=== PATIENT | male | born 1945 | race Caucasian/White ===

== ENCOUNTER 2021-02-17 09:59 | Outpatient (CLI) | payer MEDICARE, OTHER, SELFPAY ==
[2021-02-17 10:18] VITALS: BP 128/79; PULSE 72; RESP 17; TEMP 37; O2SAT 96
[2021-02-17 11:20] VITALS: BP 129/79; PULSE 69; RESP 17; TEMP 36.9; O2SAT 94
[2021-02-17 12:31] VITALS: BP 126/77; PULSE 71; RESP 18; TEMP 36.7; O2SAT 97
[2021-02-17 12:53] VITALS: BP 126/77; PULSE 71; RESP 18; TEMP 36.7
== END 2021-02-17 12:55 | disposition home or self-care (01) ==
LOC: OPS 10:00
PROVIDERS: PCP Family Medicine; Visit Provider Nurse Practitioner Family
DX: U07.1 COVID-19 (principal)
CPT/HCPCS: 96365

== ENCOUNTER → 2023-04-19 11:44 | Outpatient (BNVA) | payer MEDICARE, OTHER, SELFPAY | PROVIDERS: PCP Family Medicine; Visit Provider Family Medicine | DX: D51.9 Vitamin B12 deficiency anemia, unspecified (principal) | CPT/HCPCS: 80053; 82607; 85025 ==

== ENCOUNTER → 2023-06-08 09:43 | Outpatient (BNVA) | payer MEDICARE, OTHER, SELFPAY | PROVIDERS: PCP Family Medicine; Visit Provider Nurse Practitioner Family | DX: R05.3 Chronic cough (principal) | CPT/HCPCS: 71046 ==

== ENCOUNTER → 2024-07-30 16:42 | Outpatient (BNVA) | payer MEDICARE, OTHER, SELFPAY | PROVIDERS: PCP Family Medicine; Visit Provider Family Medicine | DX: K21.9 Gastro-esophageal reflux disease without esophagitis (principal); K56.609 Unspecified intestinal obstruction, unspecified as to partial versus complete obstruction | CPT/HCPCS: 80053; 85025; 86003; 86008 ==

== ENCOUNTER 2024-07-31 10:40 | Outpatient (CLI) | payer MEDICARE, OTHER, SELFPAY ==
--- NOTE | 2024-07-31 11:00 | CTR_ITS ---
PROCEDURE INFORMATION: Exam: CT Abdomen And Pelvis Without And With Contrast Exam date and time: 07/31/2024 12:00 PM Age: 79 years old Clinical indication: Vomiting; Additional info: Recurrent isolated episodes of vomiting TECHNIQUE: Imaging protocol: Computed tomography of the abdomen and pelvis without and with contrast. Radiation optimization: All CT scans at this facility use at least one of these dose optimization techniques: automated exposure control; mA and/or kV adjustment per patient size (includes targeted exams where dose is matched to clinical indication); or iterative reconstruction. Contrast material: OMNIPAQUE 350; Contrast volume: 100 ml; Contrast route: INTRAVENOUS (IV); COMPARISON: CR XR chest 2V* [id number] 06/08/2023 9:41 AM RADIATION DOSE METRICS: Total DLP (mGy-cm): 994.43 FINDINGS: Lungs: Right basilar consolidation. Subsegmental atelectasis in the lingula and mild dependent atelectasis in the left lower lobe. Diaphragm: Small sliding-type hiatal hernia. Liver: 1.3 cm simple appearing cyst in the lateral segment left hepatic lobe. Additional subcentimeter hypodensities are too small to characterize but likely represent cysts. Gallbladder and biliary ducts: The gallbladder is markedly distended with diffuse wall thickening and pericholecystic fat stranding. Pancreas: Normal. No ductal dilation. Spleen: Normal. No splenomegaly. Adrenal glands: Normal. No mass. Kidneys and ureters: 4 mm nonobstructing left renal calculus. 3.1 cm right renal cyst. Additional subcentimeter hypodensities too small to characterize but likely representing cysts. Stomach and bowel: Periampullary duodenal diverticulum. No bowel obstruction. Appendix: No evidence of appendicitis. Intraperitoneal space: Unremarkable. No free air. No significant fluid collection. Vasculature: Mild atherosclerotic aortoiliac calcifications. No abdominal aortic aneurysm. Lymph nodes: Unremarkable. No enlarged lymph nodes. Urinary bladder: Unremarkable as visualized. Reproductive: Prostatomegaly. Bones/joints: Degenerative changes of the visualized spine. Soft tissues: Small fat containing left inguinal hernia. CT/CT abdomen pelvis wo/w [id number] IMPRESSION: 1. Findings compatible with acute cholecystitis. 2. Nonobstructing left nephrolithiasis. 3. Simple appearing hepatic and right renal cysts. COMMENTS: Consistent with the [employer]'s Incidental Findings Committee white paper (J Am Irvin Radiol 2018): Any incidental renal lesion less than 1 cm or classified as too small to characterize, or any incidental cystic renal lesion characterized as simple-appearing, is likely benign. No follow-up imaging is recommended for these lesions per consensus recommendations based on imaging criteria.
[2024-07-31] MEDS: iohexol 350 mg/mL 500 mL Btl (per mL) PO (11:01)
[2024-07-31] MEDS: iohexol 350 mg/mL 500 mL Btl (per mL) IV (12:04)
== END 2024-07-31 10:41 | disposition home or self-care (01) ==
PROVIDERS: PCP Family Medicine; Visit Provider Family Medicine
DX: K56.600 Partial intestinal obstruction, unspecified as to cause (principal); R93.3 Abnormal findings on diagnostic imaging of other parts of digestive tract; N20.0 Calculus of kidney; N28.1 Cyst of kidney, acquired; K76.89 Other specified diseases of liver; R91.8 Other nonspecific abnormal finding of lung field; J98.11 Atelectasis; K44.9 Diaphragmatic hernia without obstruction or gangrene; R93.2 Abnormal findings on diagnostic imaging of liver and biliary tract; R93.421 Abnormal radiologic findings on diagnostic imaging of right kidney; R93.422 Abnormal radiologic findings on diagnostic imaging of left kidney; K57.10 Diverticulosis of small intestine without perforation or abscess without bleeding; I70.8 Atherosclerosis of other arteries; N40.0 Benign prostatic hyperplasia without lower urinary tract symptoms; M47.9 Spondylosis, unspecified; K40.90 Unilateral inguinal hernia, without obstruction or gangrene, not specified as recurrent
CPT/HCPCS: 74178

== ENCOUNTER 2024-07-31 15:19 | Inpatient (IN) | payer MEDICARE, OTHER, SELFPAY ==
[2024-07-31 15:29] VITALS: BMI 25.5
--- NOTE | 2024-07-31 15:47 | PM.HP ---
Providers/Chief Complaint Admitting Physician: Travis Jimenez MD Primary Care Provider: Feliz Odom MD Chief Complaint: Colycystitis History of Present Illness Víctor Maldonado is a 79 year old male who presents [facility] due to a 3-day history of nausea, vomiting, abdominal pain, he reports right upper quadrant pain especially with coughing, does report subjective fevers, no chills, no lightheadedness, dizziness, no history of alcoholism, no history of gallstones, he had a CT scan ordered by his outpatient physician which shows evidence of acute cholecystitis, tells me for the last 3 days he has not eaten or drink anything due to nausea, vomiting, poor oral intake, right upper quadrant abdominal pain, which is improving he tells me, now it only happens when he coughs Review of Systems Card: Denies: chest pain Resp: Denies: dyspnea GI: Reports: abdominal pain, nausea and vomiting; Denies: coffee ground emesis, dysphagia, diarrhea or constipation : Denies: flank pain, difficulty urinating or dysuria Neuro: Denies: headache(s) Medications/Allergies Home Medications ?Medication ?Instructions ?Recorded ?Confirmed ?Last Taken ?Type aspirin 81 mg chewable tablet 81 mg PO DAILY 04/19/23 07/31/24 07/29/24 09:00 History lcawzqf-qnkemybwi-umek tablet 1 tab PO DAILY 04/19/23 07/31/24 07/29/24 09:00 History cholecalciferol (vitamin D3) 25 25 mcg PO DAILY 04/19/23 07/31/24 07/29/24 09:00 History mcg (1,000 unit) capsule albuterol sulfate 90 mcg/actuation 2 puff inhalation QID PRN 06/08/23 07/31/24 07/29/24 09:00 Rx aerosol inhaler shortness of breath or wheezing #6.7 grams budesonide-formoterol HFA 160 2 puff inhalation BID #10.2 grams 02/07/24 07/31/24 07/16/24 09:00 Rx mcg-4.5 mcg/actuation aerosol inhaler (Symbicort) montelukast 10 mg tablet 10 mg PO DAILY #30 tabs 02/07/24 07/31/24 07/29/24 09:00 Rx (Singulair) famotidine 20 mg tablet 20 mg PO BID PRN Acid Reflux 07/31/24 07/31/24 07/29/24 09:00 History ondansetron HCl 8 mg tablet 8 mg PO Q8H PRN Nausea 07/31/24 07/31/24 07/29/24 09:00 History Allergies Allergy/AdvReac Type Severity Reaction Status Date / Time No Known Allergies Allergy Verified 07/31/24 13:33 PFSH Acute PFSH: Medical History Mini stroke History of kidney stones GERD without esophagitis Actinic keratosis Social History Smoking and tobacco/nicotine status: never used tobacco/nicotine Second hand smoke exposure: Yes (his parents smoked around him when he was a child) Alcohol intake: never Substance/Drug Use: never Adopted: No Caregiver/support person: No Lives independently: Yes Household members: spouse Housing: House Current occupation: plummer Vitals/I&O/Wt Weight last 48 hrs Weight 80.739 kg Physical Exam Const: COMMON NORMALS: no acute distress and patient oriented x3 HENMT: COMMON NORMALS: normocephalic HEAD & SCALP: normocephalic Eye: COMMON NORMALS: Equal, round and reactive pupils present Neck/C-Spine: COMMON NORMALS: no JVD Resp: COMMON NORMALS: normal respiratory effort, No retractions, No use of accessory muscles and clear to auscultation bilaterally AUSCULTATION: clear to auscultation bilaterally Cardio: COMMON NORMALS: no JVD, regular rate, regular rhythm, S1 normal heart sound present and S2 normal heart sound present RATE: regular rate RHYTHM: regular rhythm HEART SOUNDS: S1 normal heart sound present and S2 normal heart sound present GI: COMMON NORMALS: Normal to inspection, nondistended, normoactive bowel sounds present and Soft to palpation OTHER: RUQ tenderness to palpation Extremity: COMMON NORMALS: no calf tenderness and no pedal edema Neuro: COMMON NORMALS: patient oriented x3, CN's II-XII intact bilaterally and moves all extremities Psych: COMMON NORMALS: mental status grossly normal A&P Assessment and plan (1) Acute cholecystitis: Plan Acute cholecystitis - Right upper quadrant abdominal pain CT/CT abdomen pelvis wo/w [id number] IMPRESSION: 1. Findings compatible with acute cholecystitis. 2. Nonobstructing left nephrolithiasis. 3. Simple appearing hepatic and right renal cysts. Plan - Right upper quadrant ultrasound - CBC, CMP, lactic acid, lipase, CRP, Pro-Abdoul - Blood cultures - Continue Zosyn - IV fluids - N.p.o. - Full code - Lovenox for DVT prophylaxis PDMP PDMP Reviewed: Not Reviewed Attestations Medical Necessity Statement*: Patient requires hospitalization, inpatient, greater than 2 midnights, for acute cholecystitis Diagnoses Acute cholecystitis K81.0
--- NOTE | 2024-07-31 15:49 | USR_ITS ---
PROCEDURE INFORMATION: Exam: US Abdomen, Limited; Right Upper Quadrant Exam date and time: 07/31/2024 4:58 PM Age: 79 years old Clinical indication: Abdominal pain; Additional info: Ruq pain TECHNIQUE: Imaging protocol: Real time ultrasound of the abdomen with image documentation. Limited exam focused on the right upper quadrant. COMPARISON: CT abdomen pelvis wo/w [id number] 07/31/2024 12:00 PM FINDINGS: Liver: Normal. No masses. Liver measures 16.5 cm in length. Gallbladder: Layering gallbladder sludge within the lumen. Diffuse gallbladder wall thickening measuring up to 5 mm with mild pericholecystic fluid. Sonographic Enrique's sign not given by technologist. Biliary ducts: Normal. No stones. No dilation. Common bile duct measures 0.3 cm in caliber. Pancreas: Visualized pancreas is unremarkable. Right kidney: Normal. No mass. No hydronephrosis. Right kidney measures 10.4 cm in length. 3.9 x 2.5 x 3.3 cm cyst. Aorta: Distal aorta measures 1.4 cm. Inferior vena cava: Upper IVC measures 1.6 cm. Portal venous: Hepatopetal flow in the main portal vein. US/US gall bladder [id number] IMPRESSION: Gallbladder sludge with gallbladder wall thickening and mild pericholecystic fluid. Findings remain concerning for acute cholecystitis. HIDA scan could be considered for further evaluation if clinically warranted.
[2024-07-31 16:00] VITALS: BP 120/67; PULSE 94; RESP 16; TEMP 39.3; O2SAT 92
--- NOTE | 2024-07-31 16:33 | PM.CONSULT ---
Providers/Reason For Consult Consulting Physician/Specialty*: General surgeon Reason for Consult*: Acute cholecystitis Attending Physician: Travis Jimenez MD Primary Care Provider: Feliz Odom MD History of Present Illness History of Present Illness Víctor Maldonado is a 79 year old male Who is admitted to the hospital with sepsis in the setting of acute cholecystitis. Patient has been having abdominal pain intermittently for more than a week. Since Tuesday the abdominal symptoms have become constant, he has become febrile, has had several episodes of nausea and dry heaving, complaining of right upper quadrant pain. CT done in the outpatient setting today showed evidence of acute cholecystitis patient was referred to the hospital for this finding. Upon arrival to the hospital he has a temperature 102.7 Review of Systems General: Reports: 10 or more systems reviewed and unremarkable except in HPI and below Medications/Allergies Home Medications ?Medication ?Instructions ?Recorded ?Confirmed ?Last Taken ?Type aspirin 81 mg chewable tablet 81 mg PO DAILY 04/19/23 07/31/24 07/29/24 09:00 History nhcktno-cwetkvoij-ypwp tablet 1 tab PO DAILY 04/19/23 07/31/24 07/29/24 09:00 History cholecalciferol (vitamin D3) 25 25 mcg PO DAILY 04/19/23 07/31/24 07/29/24 09:00 History mcg (1,000 unit) capsule albuterol sulfate 90 mcg/actuation 2 puff inhalation QID PRN 06/08/23 07/31/24 07/29/24 09:00 Rx aerosol inhaler shortness of breath or wheezing #6.7 grams budesonide-formoterol HFA 160 2 puff inhalation BID #10.2 grams 02/07/24 07/31/24 07/16/24 09:00 Rx mcg-4.5 mcg/actuation aerosol inhaler (Symbicort) montelukast 10 mg tablet 10 mg PO DAILY #30 tabs 02/07/24 07/31/24 07/29/24 09:00 Rx (Singulair) famotidine 20 mg tablet 20 mg PO BID PRN Acid Reflux 07/31/24 07/31/24 07/29/24 09:00 History ondansetron HCl 8 mg tablet 8 mg PO Q8H PRN Nausea 07/31/24 07/31/24 07/29/24 09:00 History Allergies Allergy/AdvReac Type Severity Reaction Status Date / Time No Known Allergies Allergy Verified 07/31/24 13:33 PFSH Acute PFSH: Medical History Mini stroke History of kidney stones GERD without esophagitis Actinic keratosis Social History Smoking and tobacco/nicotine status: never used tobacco/nicotine Second hand smoke exposure: Yes (his parents smoked around him when he was a child) Alcohol intake: never Substance/Drug Use: never Adopted: No Caregiver/support person: No Lives independently: Yes Household members: spouse Housing: House Current occupation: plummer Vitals/I&O/Wt Last Vital Signs Temp 102.7 F H 07/31/24 16:00 Pulse 94 07/31/24 16:00 Resp 16 07/31/24 16:00 BP 120/67 07/31/24 16:00 Pulse Ox 92 07/31/24 16:00 O2 Del Method Room Air 07/31/24 16:00 Weight last 48 hrs Weight 178 lb Physical Exam GI: OTHER: Abdominal examination is surprisingly benign, the abdomen is soft, very minimal tenderness in the right upper quadrant. A&P Assessment and plan (1) Acute cholecystitis: (2) GERD without esophagitis: Plan After complete history, physical examination and review of all available clinical data the following is my assessment. This is a 79-year-old male who presents to the hospital with moderate acute cholecystitis and concerns for sepsis. Unfortunately patient has been having symptoms for more than a week at this point, CT of the abdomen and pelvis show evidence of severe inflammation in the right upper quadrant with significant pericholecystic changes including fat stranding. With this findings main objective of therapy at this point will be resolution of sepsis and control of symptoms we will start him on IV fluids pain control and IV antibiotics. Depending on how he does in the next 12 to 24 hours we may decide to proceed to the OR for cholecystectomy versus nonoperative management during this admission and delay cholecystectomy taking consideration that patient duration of symptoms exceeds 1 week. Clinically he appears stable although he is febrile and tachycardic. Patient shows understanding of the plan, we will update surgical management early in the morning tomorrow after repeat labs after examination of the abdomen. I did explain to the patient in the case of deciding to proceed with surgical intervention during this hospital admission there is an increased risk for complications including injury to the adjacent structures which included common bile duct duodenum colon or Renay hepatis, increased risk of needing a subtotal cholecystectomy, increased risk of retained stone and postsurgical complications. Patient shows understanding he agrees with initial nonoperative management followed by possible surgery as needed PDMP PDMP Reviewed: Not Reviewed Coding Level of Care Code Acute Code for Chg Fwd Diagnoses Acute cholecystitis K81.0 GERD without esophagitis K21.9
[2024-07-31] MEDS: sodium chloride 0.9% 1,000 ML 125 ML IV (16:34)
[2024-07-31] MEDS: lactated ringers 1,000 ML 999 ML IV (16:35)
[2024-07-31] MEDS: piperacillin-tazobactam 3.375 GM in sodium chloride 0.9% (plus) 50 ML IV ×2 (16:35→23:37)
[2024-07-31] MEDS: acetaminophen 325 mg Tablet 650 MG PO (16:36)
[2024-07-31] MEDS: pantoprazole 40 mg SDV IVP (16:36)
[2024-07-31 16:44] LABS: Basophils % 0.1 %; Hematocrit 43.9 % (37-53); Lymphocytes # 0.6 10^3/uL (0.8-4.8); Lymphocytes % 3.8 %; Mean Corpuscular HGB Conc 33.5 g/dL (30-55); Mean Corpuscular Hemoglobin 30.1 pg (27-33); Mean Corpuscular Volume 89.8 fl (82-101); Mean Platelet Volume 10.7 fL (7.4-10.4); Monocytes # 1.2 10^3/uL (0.2-0.9); Monocytes % 7.8 %; Neutrophils # 13.76 10^3/uL (1.8-7.7); Neutrophils % 87.8 %; Nucleated Red Blood Cells % 0 %; Platelet Count 183 10^3/cmm (157-399); Red Blood Count 4.89 10^6/uL (3.85-5.65); Red Cell Distribution Width 12.9 % (12.1-15.1); White Blood Count 15.68 10^3/uL (3.29-11.43)
[2024-07-31 16:59] LABS: INR 1.34 (0.8-1.2)
[2024-07-31 17:00] LABS: Partial Thromboplastin Time 28.4 SECONDS (23.9-36.7)
[2024-07-31 17:02] LABS: Lactic Sepsis W/Reflex 1.3 mmol/L (0.5-2.2)
[2024-07-31 17:25] LABS: Thyroid Stimulating Hormone 0.87 uIU/mL (0.27-4.20)
[2024-07-31 17:41] LABS: Alanine Aminotransferase 20 U/L (0-41); Albumin Level 3.8 g/dL (3.5-5.2); Alkaline Phosphatase 72 U/L (40-130); Aspartate Amino Transferase 17 U/L (0-40); Blood Urea Nitrogen 28 mg/dL (8-23); C Reactive Protein 203.6 mg/L (0.0-4.9); Calcium 9.3 mg/dL (8.5-10.5); Carbon Dioxide 22 mmol/L (22-29); Chloride 97 mmol/L (98-107); Chol HDL Ratio 2.74 mg/dL (1.0-5.00); Cholesterol 126 mg/dL (0-200); Creatinine Clr Calc Pharmacy 66.5837; Globulin 3.3 g/dL (1.3-4.6); Glucose 107 mg/dL (65-115); HDL Cholesterol 46 mg/dL (60-100); LDL Cholesterol Calculated 69 mg/dL (50-129); Lipase 14 U/L (13-60); Magnesium 1.9 mg/dL (1.7-2.3); Osmolality Calculated 282 mOsm/kg (285-295); Phosphorus 2.9 mg/dL (2.5-4.5); Sodium 133 mmol/L (136-145); Total Bilirubin 2.1 mg/dL (0.15-1.2); Total Protein 7.1 g/dL (6.6-8.7); Triglycerides 55 mg/dL (0-150)
[2024-07-31] MEDS: ketorolac 30 mg/mL INJ 15 MG IVP ×2 (17:47→22:48)
[2024-07-31 17:55] LABS: Bilirubin Urine 1+ (Negative); Blood Urine 1+ (Negative); Glucose Urine UA Negative (Normal); Ketones Urine Trace (Negative); Leukocyte Esterase Urine Negative (Negative); Nitrate Urine Negative (Negative); Protein Urine 2+ (Negative); Urine Appearance Clear (CLEAR); pH Urine 5.5 (5-7)
[2024-07-31 18:00] LABS: Add Urine Microscopic? YES; Bacteria Urine None Seen /hpf; Hyaline Casts Urine 0-4 /lpf; Squamous Epithelial Cell Urine 0-5 /hpf (0-5); WBC Urine 0-5 /hpf (0-5)
[2024-07-31 18:10] VITALS: TEMP 37.6
[2024-07-31 18:13] LABS: Procalcitonin 1.28 ng/mL (0-0.5)
[2024-07-31 18:41] LABS: Specific Gravity, Urine 1.096 (1.005-1.030); Urine Color Orange (Yellow)
[2024-07-31 20:00] VITALS: BP 107/65; PULSE 80; RESP 18; TEMP 37.1; O2SAT 93
[2024-07-31] MEDS: enoxaparin 40 mg/0.4 mL Syringe SUBCUT (20:51)
[2024-07-31 20:59] LABS: Estmated Average Glucose 111; Hemoglobin A1C 5.5 % (4.0-6.0)
[2024-07-31 22:00] VITALS: PULSE 72
[2024-07-31 23:41] VITALS: BP 122/73; PULSE 84; RESP 17; TEMP 36.7; O2SAT 92
[2024-08-01] VITALS (11 sets, daily range): BP systolic 115–134; BP diastolic 60–75; PULSE 85–103; RESP 16–19; TEMP 37–38.4; O2SAT 90–92
[2024-08-01] MEDS: sodium chloride 0.9% 1,000 ML 125 ML IV ×3 (01:19→16:21)
[2024-08-01] MEDS: ketorolac 30 mg/mL INJ 15 MG IVP ×2 (05:04→09:31)
[2024-08-01 06:02] LABS: Basophils % 0.2 %; Eosinophils % 0.2 %; Hematocrit 38.8 % (37-53); Lymphocytes # 0.5 10^3/uL (0.8-4.8); Lymphocytes % 3.6 %; Mean Corpuscular HGB Conc 32.7 g/dL (30-55); Mean Corpuscular Hemoglobin 29.7 pg (27-33); Mean Corpuscular Volume 90.9 fl (82-101); Mean Platelet Volume 10.9 fL (7.4-10.4); Monocytes # 1.2 10^3/uL (0.2-0.9); Monocytes % 9.7 %; Neutrophils # 10.74 10^3/uL (1.8-7.7); Neutrophils % 85.7 %; Nucleated Red Blood Cells % 0 %; Platelet Count 145 10^3/cmm (157-399); Red Blood Count 4.27 10^6/uL (3.85-5.65); Red Cell Distribution Width 13.1 % (12.1-15.1); White Blood Count 12.52 10^3/uL (3.29-11.43)
[2024-08-01 06:28] LABS: Alanine Aminotransferase 14 U/L (0-41); Albumin Level 3.1 g/dL (3.5-5.2); Alkaline Phosphatase 67 U/L (40-130); Anion Gap 12.8 (5-19); Aspartate Amino Transferase 13 U/L (0-40); Blood Urea Nitrogen 31 mg/dL (8-23); Calcium 8.5 mg/dL (8.5-10.5); Carbon Dioxide 23 mmol/L (22-29); Chloride 103 mmol/L (98-107); Creatinine Clr Calc Pharmacy 77.4216; Globulin 2.9 g/dL (1.3-4.6); Glucose 90 mg/dL (65-115); Osmolality Calculated 286 mOsm/kg (285-295); Potassium 3.8 mmol/L (3.5-5.1); Sodium 135 mmol/L (136-145); Total Bilirubin 1.6 mg/dL (0.15-1.2)
--- NOTE | 2024-08-01 07:00 | P.PN_ITS ---
Subjective 2 Subjective: 79-year-old male admitted with acute cho lecystitis after about a week of right upper quadrant abdominal pain that has been getting worse over the last 48 hours associated with fever and p.o. intolerance. Patient is doing very well this morning, pain has almost completely resolved, subjectively feeling almost normal. Vitals/I&O/Wt Last Vital Signs Temp 99.7 F H 08/01/24 04:00 Pulse 85 08/01/24 06:00 Resp 18 08/01/24 04:00 BP 122/64 08/01/24 04:00 Pulse Ox 90 08/01/24 04:00 O2 Del Method Room Air 08/01/24 04:00 07/31/24 08/01/24 08/01/24 22:59 06:59 14:59 Intake Total 1050 / 1050 1650 / 2700 Balance 1050 / 1050 1650 / 2700 Weight last 48 hrs Weight 197 lb 8 oz Weight 178 lb Physical Exam 2 GI: OTHER: Abdomen soft nontender nondistended. Data 08/01/24 04:18 08/01/24 04:18 Micro: Microbiology 07/31/24 16:10 Blood Culture - Preliminary Blood SPECIMEN COLLECTED 07/31/24 16:10 Blood Culture - Preliminary Blood SPECIMEN COLLECTED A&P Assessment and plan (1) Acute cholecystitis: Plan Patient is showing an excellent progression with nonoperative management of acute cholecystitis. His white count has trended down has been afebrile over the last 12 hours, tachycardia has resolved. Abdominal examination is completely benign. At this point we will plan to advance to full liquid diet and if tolerating by tomorrow we will give her a GI soft low fiber diet before discharge. The plan is to do a nonoperative management of these episodes of acute cholecystitis as patient has been having symptoms for more than 5 days now making initial surgery high risk for morbidity. After a cooldown period about 6 weeks I will bring the patient back for an elective laparoscopic cholecystectomy. I did explain to the patient that this approach carries a risk of failure and if he does have recurrent symptoms over this waiting. He should immediately return to the emergency department so we can proceed with emergent cholecystectomy. I have also Explained that if we are forced to do that it increases interoperative risk significantly. Patient shows understanding he is agreeable with the plan. He is in good spirits. All other management per medical team. PDMP PDMP Reviewed: Not Reviewed Attestations 2 Medical Necessity Statement*: Per medical team Coding Level of Care Code Acute Code for g Fwd Diagnoses Acute cholecystitis K81.0
[2024-08-01] MEDS: piperacillin-tazobactam 3.375 GM in sodium chloride 0.9% (plus) 50 ML IV ×2 (08:32→15:07)
--- NOTE | 2024-08-01 10:10 | PC.CHAP ---
Pastoral Care Encounter/Spiritual Assessment Type of Contact [] Declined lunch counter manager visit [] Patient/Family/Request visit [] Outpatient visit [] Follow-up visit [] Physician referral [] Code/Alert [x] Routine visit [] Staff referral [] Actively dying [] Patient sleeping [x] Family support [] [] Out of room [] Palliative care [] [] Receiving care in room [] Pre-surgical visit [] Trauma [] Long length of stay [] ICU visit [] Other: Relational/Emotional Strength [x] Patient feels connected with others/family/visitors/staff [] Distress [] Loneliness/isolation [] Abandonment Spirituality of Patient [x] Person of Nuvia [] Attends Confucianism of their Nuvia [x] Believes in Prayer [] Reads Bible or Oriental Orthodox materials [] There are Spiritual issues to be addressed Glass Polisher Interventions [x] Prayer [x] Active listening [x] Non-anxious presence [x] Spiritual/emotional support [] Crisis/trauma care [] Spiritual counseling [] Bereavement support [] Provided bereavement packet [] Provided Bible/devotional materials [] Provided toy/stuffed animal, coloring book to patient or family member [] Provided Communion [] Anointing/[place] [] Salvation [x] Completed spiritual assessment [] Other: Impact on Illness or Injury [] Angry [] Fearful [] Anxious [] Often cries [] Exhaustion [] Unable to work [] Unable to attend jew [] Unable to walk/stand [] Unable to read [] Unable to drive [] Unable to eat/drink [] Unable to sleep [] Unable to be with family [] Patient intubated [] Other: Summary Time spent with patient 5 min
--- NOTE | 2024-08-01 14:44 | PM.MISC ---
Miscellaneous Note Purpose of Documentation: Update on patient care Note: Patient has seen good progression during the day today. He has been able to tolerate diet with no nausea. No abdominal pain whatsoever. Vital signs have been stable last temperature 99.5. I had another discussion with the patient regarding treatment plan. We will continue current course of antibiotic management we will recheck labs in the morning if in the morning laboratory workup shows improvement and he is tolerating diet he will be allowed to transition to the outpatient setting with the hopes of bringing him back for an interval cholecystectomy in 6 to 8 weeks after this episode. In the case of clinical worsening we will have to discuss the possibility of surgery although I will definitely will prefer to avoid surgical intervention during this admission due to the timeline since initiation of symptoms. Patient shows understanding and agrees.
[2024-08-01] MEDS: pantoprazole 40 mg SDV IVP (15:07)
[2024-08-01] MEDS: morphine 4 mg/mL SDV 1 mL 2 MG IVP (15:08)
--- NOTE | 2024-08-01 15:19 | P.PN_ITS ---
Subjective 2 Subjective: Patient was seen this morning, he is currently alert oriented x 3, following all commands, he did have 1-2.7 fever yesterday afternoon, did have low-grade temperatures throughout the night, no nausea, no vomiting, having passing gas, does have right upper quadrant pain upon coughing, but no significant upper quadrant tenderness - WBC 12.52, total bili 1.6, CRP 212.2, procalcitonin 1.28 - Discussed with patient's the plan cont inue IV antibiotics, IV fluids, general surgery has seen patient, currently on clear liquids, the plan is for patient to be hopefully discharge tomorrow as long as he continues to clinically improve, and outpatient plans on cholecystectomy it up to 6 weeks - Patient and want surgery to be do ne sooner, they are agreeable to IV antibiotics, IV fluids, 48 hours to let the gallbladder cooldown with antibiotics, however they were hoping that the surgery could be done sooner, - I had a detailed discussion with the p maribeth's family about risks and benefits of surgery, risks and benefits of watchful waiting, after discussing the risk and benefits of all options, patient is not and voiced understanding, all questions answered, they would like me to get a second opinion from a surgeon in a tertiary center such as [place] they have no preference on which hospital, agreeable to [facility] in [place] - I spoke to transfer center, [facility] - Spoke to Dr. Triplett at [facility] [place] - Dr. Triplett advised me that it is reas onable for watchful waiting versus surgical intervention, but he is happy to have patient transferred up to [facility] to see patient, and give his opinion, however coming up to [place] does not guarantee that he will take out the gallbladder - I spoke to patient's family in detail, about my discussion with Dr. Triplett, discussed watchful waiting versus surgical intervention, and going up to [place] does not guarantee he will have a cholecystectomy - I gave family some time to make up the ir minds, and come to decision - I also in the family meeting with aliyah costello, his , and his daughter over the phone had a detailed discussion with him about the options available watchful waiting and surgical intervention later on versus surgical intervention more urgently - Patient and family voiced leonin g, all questions answered, shared decision making, - I had another family meeting, patient' s and family would like patient to be transferred to [facility] under the care of Dr. Triplett - After discussing the risks and benefit s of transfer, they voiced understanding, all questions were agreed to proceed - Discussed with him and family that his transfer might not be covered, patient and family voiced understanding, all questions answered, agreed to proceed - Vitals/I&O/Wt Last Vital Signs Temp 99.5 F 08/01/24 12:04 Pulse 93 08/01/24 15:03 Resp 18 08/01/24 15:03 BP 115/60 08/01/24 12:04 Pulse Ox 92 08/01/24 15:03 O2 Del Method Room Air 08/01/24 15:03 08/01/24 08/01/24 08/01/24 06:59 14:59 22:59 Intake Total 1650 / 2700 4.167 / 2033.167 Balance 1650 / 2700 4.167 / 2033.167 Weight last 48 hrs Weight 89.584 kg Weight 80.739 kg Physical Exam 2 Const: COMMON NORMALS: no acute distress and patient oriented x3 Resp: COMMON NORMALS: normal respiratory effort, No retractions, No use of accessory muscles and clear to auscultation bilaterally AUSCULTATION: clear to auscultation bilaterally Cardio: COMMON NORMALS: regular rate, regular rhythm, S1 normal heart sound present and S2 normal heart sound present RATE: regular rate RHYTHM: r egular rhythm HEART SOUNDS: S1 normal heart sound present and S2 normal heart sound present GI: COMMON NORMALS: Normal to inspection, nondistended, normoactive bowel sounds present and non-tender Extremity: COMMON NORMALS: no pedal edema Neuro: COMMON NORMALS: patient oriented x3 Psych: COMMON NORMALS: mental status grossly normal Data 08/01/24 04:18 08/01/24 04:18 Micro: Microbiology 07/31/24 16:10 Blood Culture - Preliminary Blood SPECIMEN COLLECTED 07/31/24 16:10 Blood Culture - Preliminary Blood SPECIMEN COLLECTED A&P Assessment and plan (1) Acute cholecystitis: Plan Acute cholecystitis - Right upper quadrant abdominal pain CT/CT abdomen pelvis wo/w [id number] IMPRESSION: 1. Findings compatible with acute cholecystitis. 2. Nonobstructing left nephrolithiasis. 3. Simple appearing hepatic and right renal cysts. us gallbladder US/US gall bladder [id number] IMPRESSION: Gallbladder sludge with gallbladder wall thickening and mild pericholecystic fluid. Findings remain concerning for acute cholecystitis. HIDA scan could be considered for further evaluation if clinically warranted. - CRP 212, bilirubin 1.6, Pro-Abdoul 1.28 Plan - Continue clear liquid diet - Serial abdominal exams - Blood cultures - Continue Zosyn - IV fluids - Clear liquids, will make n.p.o. midnight - Full code - Lovenox for DVT prophylaxis PDMP PDMP Reviewed: Not Reviewed Attestations 2 Medical Necessity Statement*: Patient requires hospitalization for acute cholecystitis, requiring transfer to tertiary level center Diagnoses Acute cholecystitis K81.0
--- NOTE | 2024-08-01 15:38 | P.TS_ITS ---
Transfer Summary Providers Date of Admission: 07/31/24 15:25 Date of Discharge/Transfer: 08/01/24 Attending Provider at Admission: Travis Jimenez MD Attending Provider at Transfer: Travis Jimenez MD Primary Care Provider: Feliz Odom MD Transfer Plans: Anticipated date of transfer: 08/01/24 . Diagnoses at Discharge Discharge Diagnosis (1) Acute cholecystitis: Status: Acute Reason for Visit Reason for Visit Colycystitis Hospital Course Hospital Course Víctor Maldonado is a 79 year old male who presents [facility] due to a 3-day history of nausea, vomiting, abdominal pain, he reports right upper quadrant pain especially with coughing, does report subjective fevers, no chills, no lightheadedness, dizziness, no history of alcoholism, no history of gallstones, he had a CT scan ordered by his outpatient physician which shows evidence of acute cholecystitis, tells me for the last 3 days he has not eaten or drink anything due to nausea, vomiting, poor oral intake, right upper quadrant abdominal pain, which is improving he tells me, now it only happens when he coughs Patient was admitted to [facility] for acute cholecystitis Acute cholecystitis - Right upper quadrant abdominal pain CT/CT abdomen pelvis wo/w [id number] IMPRESSION: 1. Findings compatible with acute cholecystitis. 2. Nonobstructing left nephrolithiasis. 3. Simple appearing hepatic and right renal cysts. us gallbladder US/US gall bladder [id number] IMPRESSION: Gallbladder sludge with gallbladder wall thickening and mild pericholecystic fluid. Findings remain concerning for acute cholecystitis. HIDA scan could be considered for further evaluation if clinically warranted. - CRP 212, bilirubin 1.6, Pro-Abdoul 1.28, febrile yesterday afternoon up to 102.7 - Patient overall clinically was improving, transition to clear liquid diet Patient was seen this morning, he is currently alert oriented x 3, following all commands, he did have 102.7 fever yesterday afternoon, did have low-grade temperatures throughout the night, no nausea, no vomiting, passing gas, does have right upper quadrant pain upon coughing, but no significant upper quadrant tenderness - WBC 12.52, total bili 1.6, CRP 212.2, procalcitonin 1.28 - Discussed with patient's the plan continue IV antibiotics, IV fluids, general surgery has seen patient, currently on clear liquids, the plan is for patient to hopefully discharge tomorrow as long as he continues to clinically improve, and outpatient plans on cholecystectomy up to 6 weeks - Patient and want surgery to be done sooner, they are agreeable to IV antibiotics, IV fluids, 48 hours to let the gallbladder cooldown with antibiotics, however they were hoping that the surgery could be done sooner, - I had a detailed discussion with the patient's family about risks and benefits of surgery, risks and benefits of watchful waiting, after discussing the risk and benefits of all options, patient and voiced understanding, all questions answered, they would like for me to get a second opinion from a surgeon in a tertiary center such as [place] they have no preference on which hospital, agreeable to [facility] in [place] - I spoke to transfer center, [facility] - Spoke to Dr. Triplett at [facility] - Dr. Triplett advised me that it is reasonable for watchful waiting versus surgical intervention, but he is happy to have patient transferred up to [facility] to see patient, and give his opinion, however coming up to [place] does not guarantee that he will take out the gallbladder during patient's admission - I spoke to patient's family in detail, about my discussion with Dr. Triplett, discussed watchful waiting versus surgical intervention, and going up to [place] does not guarantee he will have a cholecystectomy - I gave family some time to come to inform decision - I also in the family meeting with patient, his , and his daughter over the phone had a detailed discussion with him about the options available watchful waiting and surgical intervention later on versus surgical intervention more urgently - Patient and family voiced understanding, all questions answered, shared decision making, - I had another family meeting, patient's and family would like patient to be transferred to [facility] under the care of Dr. Triplett -Again they understand that going up to [facility] does not guarantee that he will have his cholecystectomy, but they are in preference for transfer, they are hoping to have the gallbladder out sooner than 6 weeks, - After discussing the risks and benefits of transfer, they voiced understanding, all questions were agreed to proceed - Discussed with him and family that his transfer might not be covered by insurance, patient and family voiced understanding, all questions answered, agreed to proceed Physical Exam Const: COMMON NORMALS: no acute distress and patient oriented x3 Resp: COMMON NORMALS: normal respiratory effort, No retractions, No use of accessory muscles and clear to auscultation bilaterally AUSCULTATION: clear to auscultation bilaterally Cardio: COMMON NORMALS: regular rate, regular rhythm, S1 normal heart sound present and S2 normal heart sound present RATE: regular rate RHYTHM: regular rhythm HEART SOUNDS: S1 normal heart sound present and S2 normal heart sound present GI: COMMON NORMALS: Normal to inspection, nondistended, normoactive bowel sounds present and non-tender Extremity: COMMON NORMALS: no pedal edema Neuro: COMMON NORMALS: patient oriented x3 Psych: COMMON NORMALS: mental status grossly normal TS Data Studies Completed and Pending Pending at discharge Category Date Time Status BMP [Basic Metabolic Panel] AM LABS Lab 08/02/24 04:00 Ordered BMP [Basic Metabolic Panel] AM LABS Lab 08/03/24 04:00 Ordered Blood Culture Stat Lab 07/31/24 16:10 Results CRP [C Reactive Protein] AM LABS Lab 08/02/24 04:00 Ordered CRP [C Reactive Protein] AM LABS Lab 08/03/24 04:00 Ordered Complete Blood Count w/Auto AM LABS Lab 08/02/24 04:00 Ordered Complete Blood Count w/Auto AM LABS Lab 08/03/24 04:00 Ordered LFT [Liver Panel] AM LABS Lab 08/02/24 04:00 Ordered LFT [Liver Panel] AM LABS Lab 08/03/24 04:00 Ordered Completed Studies During Hospitalization Category Date Time Status US gall bladder 66137 Stat Ultrasound 07/31/24 15:49 Completed Laboratory Last Values WBC 12.52 10^3/uL (3.29-11.43) H 08/01/24 04:18 RBC 4.27 10^6/uL (3.85-5.65) 08/01/24 04:18 Hgb 12.70 g/dL (11.27-16.99) 08/01/24 04:18 Hct 38.8 % (37-53) 08/01/24 04:18 MCV 90.9 fl (82-101) 08/01/24 04:18 MCH 29.7 pg (27-33) 08/01/24 04:18 MCHC 32.7 g/dL (30-55) 08/01/24 04:18 RDW 13.1 % (12.1-15.1) 08/01/24 04:18 Plt Count 145 10^3/cmm (157-399) L 08/01/24 04:18 MPV 10.9 fL (7.4-10.4) H 08/01/24 04:18 Neut % (Auto) 85.7 % 08/01/24 04:18 Lymph % (Auto) 3.6 % 08/01/24 04:18 [place] % (Auto) 9.7 % 08/01/24 04:18 Eos % (Auto) 0.2 % 08/01/24 04:18 Baso % (Auto) 0.2 % 08/01/24 04:18 Neut # (Auto) 10.74 10^3/uL (1.8-7.7) H 08/01/24 04:18 Lymph # (Auto) 0.5 10^3/uL (0.8-4.8) L 08/01/24 04:18 [place] # (Auto) 1.2 10^3/uL (0.2-0.9) H 08/01/24 04:18 Eos # (Auto) 0.0 10^3/uL (0.0-0.8) 08/01/24 04:18 Baso # (Auto) 0.0 10^3/uL (0.0-0.1) 08/01/24 04:18 Nucleated RBC % (auto) 0 % 08/01/24 04:18 Nucleated RBCs # 0.0 /100WBC 08/01/24 04:18 PT 17.50 SECONDS (12.1-14.9) H 07/31/24 16:10 INR 1.34 (0.8-1.2) H 07/31/24 16:10 APTT 28.4 SECONDS (23.9-36.7) 07/31/24 16:10 Sodium 135 mmol/L (136-145) L 08/01/24 04:18 Potassium 3.8 mmol/L (3.5-5.1) 08/01/24 04:18 Chloride 103 mmol/L (98-107) 08/01/24 04:18 Carbon Dioxide 23 mmol/L (22-29) 08/01/24 04:18 Anion Gap 12.8 (5-19) 08/01/24 04:18 BUN 31 mg/dL (8-23) H 08/01/24 04:18 Creatinine 0.9 mg/dL (0.7-1.2) 08/01/24 04:18 GFR Calculation Not Reportable 08/01/24 04:18 Glucose 90 mg/dL (65-115) 08/01/24 04:18 Estimat Average Glucose 111 07/31/24 16:10 Hemoglobin A1c 5.5 % (4.0-6.0) 07/31/24 16:10 Calculated Osmolality 286 mOsm/kg (285-295) 08/01/24 04:18 Lactic Acid 1.3 mmol/L (0.5-2.2) 07/31/24 16:10 Calcium 8.5 mg/dL (8.5-10.5) 08/01/24 04:18 Phosphorus 2.9 mg/dL (2.5-4.5) 07/31/24 16:10 Magnesium 1.9 mg/dL (1.7-2.3) 07/31/24 16:10 Total Bilirubin 1.6 mg/dL (0.15-1.2) H 08/01/24 04:18 Direct Bilirubin 0.60 mg/dL (0.00-0.30) H 08/01/24 04:18 Indirect Bilirubin 1.50 07/31/24 16:10 AST 13 U/L (0-40) 08/01/24 04:18 ALT 14 U/L (0-41) 08/01/24 04:18 Alkaline Phosphatase 67 U/L (40-130) 08/01/24 04:18 C-Reactive Protein 212.0 mg/L (0.0-4.9) H 08/01/24 04:18 Total Protein 6.0 g/dL (6.6-8.7) L 08/01/24 04:18 Albumin 3.1 g/dL (3.5-5.2) L 08/01/24 04:18 Globulin 2.9 g/dL (1.3-4.6) 08/01/24 04:18 Triglycerides 55 mg/dL (0-150) 07/31/24 16:10 Cholesterol 126 mg/dL (0-200) 07/31/24 16:10 LDL Cholesterol, Calc 69 mg/dL (50-129) 07/31/24 16:10 HDL Cholesterol 46 mg/dL (60-100) L 07/31/24 16:10 LDL/HDL Ratio 1.50 RATIO (0.00-3.22) 07/31/24 16:10 Cholesterol/HDL Ratio 2.74 mg/dL (1.0-5.00) 07/31/24 16:10 Lipase 14 U/L (13-60) 07/31/24 16:10 Procalcitonin 1.28 ng/mL (0-0.5) H 07/31/24 16:10 TSH 0.87 uIU/mL (0.27-4.20) 07/31/24 16:10 Urine Color [employer] (Yellow) A 07/31/24 17:12 Urine Appearance Clear (CLEAR) 07/31/24 17:12 Urine pH 5.5 (5-7) 07/31/24 17:12 Ur Specific [place] 1.096 (1.005-1.030) H 07/31/24 17:12 Urine Protein 2+ (Negative) A 07/31/24 17:12 Urine Glucose (UA) Negative (Normal) 07/31/24 17:12 Urine Ketones Trace (Negative) 07/31/24 17:12 Urine Blood 1+ (Negative) A 07/31/24 17:12 Urine Nitrate Negative (Negative) 07/31/24 17:12 Urine Bilirubin 1+ (Negative) H 07/31/24 17:12 Urine Urobilinogen 1.0 mg/dL (Negative) 07/31/24 17:12 Ur Leukocyte Esterase Negative (Negative) 07/31/24 17:12 Urine RBC 6-10 /hpf (0-2) 07/31/24 17:12 Urine WBC 0-5 /hpf (0-5) 07/31/24 17:12 Ur Squamous Epith Cells 0-5 /hpf (0-5) 07/31/24 17:12 Amorphous Sediment Not Reportable 07/31/24 17:12 Urine Bacteria None seen /hpf (NONE) 07/31/24 17:12 Hyaline Casts 0-4 /lpf H 07/31/24 17:12 Radiology Impressions Gallbladder Ultrasound 07/31/24 15:49 IMPRESSION: Gallbladder sludge with gallbladder wall thickening and mild pericholecystic fluid. Findings remain concerning for acute cholecystitis. HIDA scan could be considered for further evaluation if clinically warranted. Recent Clincial Data Last Vital Signs Temp 99.5 F 08/01/24 12:04 Pulse 93 08/01/24 15:03 Resp 16 08/01/24 15:08 BP 115/60 08/01/24 12:04 Pulse Ox 92 08/01/24 15:03 O2 Del Method Room Air 08/01/24 15:03 Vital Signs Temp Pulse Resp BP Pulse Ox O2 Del Method 08/01/24 15:08 16 08/01/24 15:03 93 18 92 Room Air 08/01/24 12:04 99.5 F 93 18 115/60 91 Room Air 08/01/24 07:55 98.7 F 95 17 122/67 90 Room Air 08/01/24 06:00 85 08/01/24 04:00 99.7 F H 89 18 122/64 90 Room Air Intake & Output/Weight 07/30/24 07/31/24 08/01/24 08/02/24 06:59 06:59 06:59 06:59 Intake Total 2700 / 2700 2034.167 / 2034.167 Balance 2700 / 2700 2034.167 / 2033.167 Weight 89.584 kg Vitals Last Vital Signs Temp 99.5 F 08/01/24 12:04 Pulse 93 08/01/24 15:03 Resp 16 08/01/24 15:08 BP 115/60 08/01/24 12:04 Pulse Ox 92 08/01/24 15:03 O2 Del Method Room Air 08/01/24 15:03 TS Medications Medications Acetaminophen (Acetaminophen 325 Mg Tablet) 650 mg PO Q6H PRN PRN Reason: Mild/Mod Pain Or Temp >/= 101 Last Admin: 07/31/24 16:36 Dose: 650 mg Capsaicin (Capsaicin 0.025% Cream 60 Gm) 1 applic TOPICAL QID PRN PRN Reason: PAIN Enoxaparin Sodium (Enoxaparin 40 Mg/0.4 Ml Syringe) 40 mg SUBCUT Q24H [facility] Last Admin: 07/31/24 20:51 Dose: 40 mg Sodium Chloride (Sodium Chloride 0.9%) 1,000 mls @ 125 mls/hr IV .Q8H [facility] Last Admin: 08/01/24 08:33 Dose: 125 mls/hr Piperacillin Sod/Tazobactam (Sod 3.375 gm/ Sodium Chloride) 50 mls @ 12.5 mls/hr IV Q8H [facility] Last Admin: 08/01/24 15:07 Dose: 12.5 mls/hr Morphine Sulfate (Morphine 4 Mg/Ml Sdv 1 Ml) 2 mg IVP Q4H PRN PRN Reason: SEVERE PAIN Last Admin: 08/01/24 15:08 Dose: 2 mg Naloxone HCl (Naloxone 0.4 Mg/Ml Sdv) 0.1 mg IVP Q2M PRN PRN Reason: OPIATERV Ondansetron HCl (Ondansetron 2 Mg/Ml Sdv 2 Ml) 4 mg IVP Q4H PRN PRN Reason: NAUSEA AND VOMITING Pantoprazole Sodium (Pantoprazole 40 Mg Sdv) 40 mg IVP Q24H [facility] Last Admin: 08/01/24 15:07 Dose: 40 mg Discontinued Medications Diclofenac Sodium (Diclofenac 1% Topical Gel 100 Gm) 1 applic TOPICAL QID PRN PRN Reason: PAIN Lactated Ringer's (Lactated Ringers) 1,000 mls @ 999 mls/hr IV .Q1H1M ONE Stop: 07/31/24 17:23 Last Infusion: 07/31/24 17:45 Dose: Infused Ketorolac Tromethamine (Ketorolac 30 Mg/Ml Inj) 15 mg IVP ONCE ONE Stop: 07/31/24 16:25 Last Admin: 07/31/24 17:47 Dose: 15 mg Ketorolac Tromethamine (Ketorolac 30 Mg/Ml Inj) 15 mg IVP Q6H [facility] Stop: 08/05/24 22:44 Last Admin: 08/01/24 09:31 Dose: 15 mg Ondansetron HCl (Ondansetron 2 Mg/Ml Sdv 2 Ml) 4 mg IVP Q8H PRN PRN Reason: vomiting, or N/V if npo Allergies No Known Allergies Allergy (Verified 07/31/24 13:33) Home Medications aspirin 81 mg chewable tablet 81 mg PO DAILY 04/19/23 [History Confirmed 07/31/24] [id number] tablet 1 tab PO DAILY 04/19/23 [History Confirmed 07/31/24] cholecalciferol (vitamin D3) 25 mcg (1,000 unit) capsule 25 mcg PO DAILY 04/19/23 [History Confirmed 07/31/24] albuterol sulfate 90 mcg/actuation aerosol inhaler 2 puff inhalation QID PRN shortness of breath or wheezing #6.7 grams 06/08/23 [Rx Confirmed 07/31/24] budesonide-formoterol HFA 160 mcg-4.5 mcg/actuation aerosol inhaler (Symbicort) 2 puff inhalation BID #10.2 grams 02/07/24 [Rx Confirmed 07/31/24] montelukast 10 mg tablet (Singulair) 10 mg PO DAILY #30 tabs 02/07/24 [Rx Confirmed 07/31/24] famotidine 20 mg tablet 20 mg PO BID PRN Acid Reflux 07/31/24 [History Confirmed 07/31/24] ondansetron HCl 8 mg tablet 8 mg PO Q8H PRN Nausea 07/31/24 [History Confirmed 07/31/24] Discharge Plan Discharge Patient Disposition: Home Condition: Stable Prescriptions: No Action aspirin 81 mg tablet,chewable 81 mg PO DAILY [id number] Tablet 1 tab PO DAILY cholecalciferol (vitamin D3) 25 mcg (1,000 unit) capsule 25 mcg PO DAILY albuterol sulfate 90 mcg/actuation HFA aerosol inhaler 2 puff inhalation QID PRN (Reason: shortness of breath or wheezing) Qty: 6.7 2RF montelukast [Singulair] 10 mg tablet 10 mg PO DAILY Qty: 30 5RF budesonide-formoterol [Symbicort] 160-4.5 mcg/actuation HFA aerosol inhaler 2 puff inhalation BID Qty: 10.2 5RF ondansetron HCl 8 mg tablet 8 mg PO Q8H PRN (Reason: Nausea) famotidine 20 mg tablet 20 mg PO BID PRN (Reason: Acid Reflux) Patient Instructions: Opioid Safety Transfer Attestations Time Spent in Transfer Care: greater than 30 min Quality Metrics Clinical Quality Measures [ No reported AMI, CVA or VTE this stay] Coding Level of Care Code Acute Code for [facility] Fwd Diagnoses Acute cholecystitis K81.0
[2024-08-01] MEDS: acetaminophen 325 mg Tablet 650 MG PO (16:16)
== END 2024-08-01 18:15 | disposition short-term general hospital (02) | DRG 446 ==
PROVIDERS: Surgery; Admitting Provider Family Medicine; PCP Family Medicine; Visit Provider Family Medicine
DX: K81.0 Acute cholecystitis (principal); L57.0 Actinic keratosis; R00.0 Tachycardia, unspecified; Z77.22 Contact with and (suspected) exposure to environmental tobacco smoke (acute) (chronic); Z79.82 Long term (current) use of aspirin; Z86.73 Personal history of transient ischemic attack (TIA), and cerebral infarction without residual deficits
CPT/HCPCS: 36415; 76705; 80048; 80053; 80061; 80076; 81001; 82247; 82248; 83036; 83605; 83690; 83735; 84100; 84145; 84443; 85025; 85610; 85730; 86140; 87040; 94664; 96372; G0378; G0379; J1650; J1885; J2270; J2470; J2543; J7030; J7120; J9999

== ENCOUNTER → 2024-08-13 10:34 | Outpatient (BNVA) | payer MEDICARE, OTHER, SELFPAY | PROVIDERS: PCP Family Medicine; Visit Provider Family Medicine | DX: K81.0 Acute cholecystitis (principal) | CPT/HCPCS: 80053; 85025 ==